=== PATIENT | female | born 1995 | race Caucasian/White ===

== ENCOUNTER 2021-04-06 17:37 | Emergency (ER) | payer OTHER ==
--- NOTE | 2021-04-06 18:17 | ED Physician Documentation ---
History of Present Illness - Stated complaint Stated Complaint: LOW BACK PX - Chief complaint Chief Complaint: Abd Pain - History obtained from History obtained from: Patient - History of Present Illness Timing: Today Pain level max: 8 Pain level now: 5 - Additonal information Additional information: 25-year-old female states that she was at work today sitting when she developed a pain in her tailbone. Worse with sitting, better with standing. Does not recall any injury. No fevers. No chills. She states it is tender to palpation. Has not had symptoms previously. Review of Systems Constitutional: denies: Fever, Chills Respiratory: denies: Cough GI: denies: Abdominal Pain, Nausea, Vomiting, Diarrhea Musculoskeletal: denies: Neck pain, Back pain Neurologic: denies: Headache PD PAST MEDICAL HISTORY - Past Medical History Past Medical History: No - Past Surgical History Past Surgical History: No - Present Medications Home Medications: Ambulatory Orders Medication Instructions Recorded Confirmed HYDROcod/ACETAM 5/325 [[place] 5/325] 1 - 2 ea PO Q6H PRN #14 tablet 04/06/21 Sulfamethox/Trimeth 800/160 1 each PO BID #14 tablet 04/06/21 [Bactrim Ds 800/160] cephALEXin [Keflex] 500 mg PO Q6H #28 cap 04/06/21 - Allergies Allergies/Adverse Reactions: Allergies Allergy/AdvReac Type Severity Reaction Status Date / Time No Known Drug Allergies Allergy Verified 04/06/21 17:50 - Social History Does the pt smoke?: No Smoking Status: Never smoker PD ED PE NORMAL - Vitals Vital signs reviewed: Yes - General General: Alert and oriented X 3, No acute distress - HEENT HEENT: Moist mucous membranes - Neck Neck: Supple, no meningeal sign - Cardiac Cardiac: RRR - Respiratory Respiratory: No respiratory distress, Clear bilaterally - Back Back: Other (at the tip of the coccyx there is small erythematous and swollen area. no fluctuance. ) - Derm Derm: Warm and dry - Neuro Neuro: Alert and oriented X 3 Results - Vitals Vitals: Vital Signs - 24 hr 04/06/21 04/06/21 17:51 18:30 Temperature 37.2 C Heart Rate 115 H 85 Respiratory 19 16 Rate Blood Pressure 136/88 H 116/78 O2 Saturation 99 100 Oxygen O2 Source Room air PD MEDICAL DECISION MAKING - ED course Complexity details: reviewed results, re-evaluated patient, considered differential, d/w patient ED course: Patient with a very small early pilonidal cyst that appears irritated and likely infected. No drainable abscess at this time. Will place on pain medication and antibiotics for home. Patient counseled regarding signs and symptoms for which I believe and urgent re-evaluation would be necessary. Patient with good understanding of and agreement to plan and is comfortable going home at this time This document was made in part using voice recognition software. While efforts are made to proofread this document, sound alike and grammatical errors may occ ur. Departure - Departure Disposition: Home, Self Care Clinical Impression: Infected pilonidal cyst Condition: Good Instructions: ED Cyst Pilonidal Infec Abx Only Follow-Up: your,doctor in 3 days for recheck [Other] Prescriptions: Sulfamethox/Trimeth 800/160 [Bactrim Ds 800/160] 1 each PO BID #14 tablet cephALEXin [Keflex] 500 mg PO Q6H #28 cap HYDROcod/ACETAM 5/325 [[place] 5/325] 1 - 2 ea PO Q6H PRN #14 tablet PRN Reason: Pain Comments: Follow-up with your doctor in 3 days for recheck. As this should improve with antibiotics. You can use the pain medication as needed for pain. Take all antibiotics until gone even if you are feeling better. I am prescribing a short course of narcotic pain medication for you. These are potentially dangerous and addictive medications that should be used carefully. These medications may constipate you. Take an easu-lsf-[id number] stool softener (docusate) twice daily with plenty of water while taking these medications. If you go 24 hours without a bowel movement, take [id number] miralax, per package instructions. Do not drink or drive while taking these medications. If you received narcotic or sedating medications while in the emergency department, do not drive for 24 hours. Store this medication in a safe, secure place and out of reach of children. It is a violation of federal law to give or sell this medication to another person or to use in a manner other than prescribed. The ED will not refill narcotic prescriptions, including prescriptions lost or stolen. To dispose of unwanted medications: 1. [facility] at [address] in [place] has a medication drop box. They accept prescription medications (in pill form) Sunday through Sunday 9:00 a.m. to 5:00 p.m. 2. The [facility] [employer] accepts prescription medications (in pill form only) for disposal year round. Call for more information. 3. Contact the [facility] for the next [facility] sponsored prescription drug collection event. , [phone], or [phone]; Discharge Date/Time: 04/06/21 18:30
[2021-04-06] MEDS: cephALEXin 250 MG CAPSULE PO STA (18:29)
[2021-04-06] MEDS: HYDROcod/ACETAM 5/325 MG TABLET PO STA (18:29)
[2021-04-06] MEDS: SULFAMETH/TRIMETH DS 800/160 MG TABLET PO STA (18:29)
[2021-04-06 18:31] VITALS: BP 116/78
== END 2021-04-06 18:30 | disposition home or self-care (01) ==
LOC: ED 17:37
DX: L05.01 Pilonidal cyst with abscess (principal)
CPT/HCPCS: 99283; 99284; A9270